=== PATIENT | female | born 1990 | race African-American/Black ===

== ENCOUNTER 2017-05-11 14:42 | Emergency (ER) | payer OTHER ==
[~2017-05-11] VITALS: Ht 149.9 cm; Wt 80.5 kg
[~2017-05-11 14:42] MED LIST: FERROUS SULF325 M1 PO; MONISTAT1 VA; NECON 1/35-281 TAB PO; NORCO1 TA1 PO; PRENATAL1 TA1 PO; ULTRAM50 M1 PO
[2017-05-11 15:26] LABS: HEMATOCRIT 38.7 % (37.0-47.0); HEMOGLOBIN 12.9 g/dl (12.0-16.0); IMMATURE GRANULOCYTES 0.4 % (0.0-1.0); MEAN CELL VOLUME 86.8 fL CALC (80.0-100.0); MEAN CORPUSCULAR HGB 28.9 pG CALC (26.0-32.0); MEAN CORPUSCULAR HGB CONC 33.3 g/L CALC (32.0-36.0); NEUT# 13.09 thou/uL (2.00-7.15); RED BLOOD COUNT 4.46 mill/uL (4.20-5.60); RED CELL DISTRI WIDTH 15.2 % (11.5-15.5)
[2017-05-11 15:46] LABS: ANION GAP 20 (6-22 (CALC)); BUN 5 mg/dL (7-17); BUN/CREATININE RATIO 8 (12-20 (CALC)); CARBON DIOXIDE 20 mmol/l (22-30); CHLORIDE 105 mmol/l (95-108); CREATININE 0.6 mg/dL (0.5-1.0); GFR > 60 ML/MIN (>=60 (CALC)); GFR FOR AFR.AMER. > 60 ML/MIN (>=60 (CALC)); POTASSIUM 4.7 mmol/l (3.5-5.1); SODIUM 141 mmol/l (137-146)
[2017-05-11 17:13] LABS: URINE BILIRUBIN - DIPSTICK NEGATIVE (NEGATIVE); URINE BLOOD DIPSTICK LARGE (NEGATIVE); URINE COLOR YELLOW; URINE GLUCOSE - DIPSTICK NEGATIVE (NEGATIVE); URINE KETONE TRACE mg/dL (NEGATIVE); URINE NITRITE - DIPSTICK NEGATIVE (Negative); URINE PH 5.5 (4.5-8.0); URINE PROTEIN - DIPSTICK NEGATIVE (NEG-TRACE); URINE SPECIFIC GRAVITY <=1.005; URINE UROBILINOGEN - DIPSTICK 0.2 E.U./dL (0.2)
[2017-05-11 17:31] LABS: URINE LEUK ESTERASE SMALL (NEGATIVE)
[2017-05-11 17:32] LABS: URINE CLARITY CLOUDY
[2017-05-11] MEDS ORDERED: CEPHALEXIN500 M1 PO (17:44)
[2017-05-11] MEDS ORDERED: MOTRIN400 MG PO (17:44)
[2017-05-11 17:53] LABS: URINE RBC 25-50 RBC/hpf (0-5)
[2017-05-11 18:00] VITALS: BP 115/73
[2017-05-11 19:54] LABS: URINE BACTERIA RARE hpf
== END 2017-05-11 18:00 | disposition home or self-care (01) | DRG 313 ==
LOC: ED 14:42
PROVIDERS: Family Medicine
DX: R07.89 Other chest pain (principal); F17.210 Nicotine dependence, cigarettes, uncomplicated; N39.0 Urinary tract infection, site not specified; R50.9 Fever, unspecified

== ENCOUNTER 2020-04-18 16:42 | Emergency (ER) | payer OTHER ==
[~2020-04-18] VITALS: Ht 149.9 cm; Wt 95.0 kg
[~2020-04-18 16:42] MED LIST changes: +CEPHALEXIN500 M1 PO; +MOTRIN400 MG PO
[2020-04-18 17:10] LABS: URINE BILIRUBIN - DIPSTICK NEGATIVE (NEGATIVE); URINE BLOOD DIPSTICK NEGATIVE (NEGATIVE); URINE CLARITY CLEAR; URINE COLOR YELLOW; URINE GLUCOSE - DIPSTICK NEGATIVE (NEGATIVE); URINE KETONE 15 mg/dL (NEGATIVE); URINE LEUK ESTERASE NEGATIVE (Negative); URINE NITRITE - DIPSTICK NEGATIVE (Negative); URINE PH 6.5 (4.5-8.0); URINE PROTEIN - DIPSTICK NEGATIVE (NEG-TRACE)
[2020-04-18] MEDS ORDERED: FLEXERIL5 MG PO (17:37)
[2020-04-18 17:55] VITALS: BP 126/69
== END 2020-04-18 17:55 | disposition home or self-care (01) | DRG 563 ==
LOC: ED 16:42
DX: S39.012A Strain of muscle, fascia and tendon of lower back, initial encounter (principal); F17.200 Nicotine dependence, unspecified, uncomplicated; V89.2XXA Person injured in unspecified motor-vehicle accident, traffic, initial encounter